=== PATIENT | female | born 1960 | race Caucasian/White ===

== ENCOUNTER 2017-04-10 13:16 | Inpatient (IN) | payer BC ==
[~2017-04-10] VITALS: Ht 172.7 cm; Wt 96.2 kg
[~2017-04-10 13:16] MED LIST: DYRENIUM50 MG PO; MONODOX100 MG PO; OXYCODONE HCL5 MG PO; PROTONIX40 MG PO; SYNTHROID112 MCG PO; VITAMIN B-122500 MCG PO
--- NOTE | 2017-04-10 13:30 | NUR ---
RECEIVED TO ROOM 2236 VIA A DIRECT ADMIT FROM DR. RAMIREZ'S OFFICE. A/O X3. REPORTS THROAT IS VERY SORE AND MAKES FOOD TASTE LIKE METAL. SKIN IS INTACT WITHOUT REDNESS. ANSWERS ALL QUESTIONS APPROPRIATELY. DENIES NEEDS.
[2017-04-10] MEDS ORDERED: AMOXICILLIN500 M1 PO (13:35)
[2017-04-10 13:56] VITALS: BP 105/71; BMI 32.3
--- NOTE | 2017-04-10 14:30 | NUR ---
IV SITED TO RIGHT FOREARM AFTER ONE ATTEMPT WITH 20G.
--- NOTE | 2017-04-10 18:15 | NUR ---
ABLE TO EAT SOME SUPPER AT THIS TIME. IN ROOM. DENIES NEEDS. NO CHANGES NOTED.
[2017-04-10 20:00] VITALS: BP 112/65
[2017-04-11] VITALS: BP 130/75
--- NOTE | 2017-04-11 03:56 | NUR ---
PT IS AWAKE WATCHING TV. HER IV WAS BEEPING AND IT WAS FIXED. SHE HAS EASY RESPIRATIONS AND NO COMPLAINTS VOICED. THE BED IS LOW, RAILS UP X'S 2 WITH THE CALL LIGHT AT HAND.
[2017-04-11 04:34] LABS: BASOPHILS 0.1 % (0-2); EOSINOPHILS 0 % (0-7); HEMATOCRIT 40.4 % (36.0-48.0); HEMOGLOBIN 12.9 g/dL (12-16); IMMATURE GRANULOCYTES 0.7 % (0-5); LYMPHOCYTES 15.6 % (15-50); MCH 27.6 pg (26.0-34.0); MCHC 31.9 g/dL (31.0-37.0); MCV 86.5 fL (80.0-100.0); MEAN PLATELET VOLUME 10.4 fL (7.4-10.4); MONOCYTES 2.1 % (2-11); NEUTROPHILS 81.5 % (40-80); PLATELET COUNT 258 10x3/uL (130-400); RBC 4.67 10x6/uL (4.00-5.40); RDW 13.5 % (11.5-14.5); WBC 8.2 10x3/uL (4.8-10.8)
[2017-04-11 04:58] LABS: ALBUMIN 3.1 g/dL (3.4-5.0); ALKALINE PHOSPHATASE 165 U/L (46-116); ALT (SGPT) 71 U/L (10-68); BILIRUBIN - TOTAL 0.33 mg/dL (0.2-1.3); CALC OSMOLALITY 279 mosm/kg (275-300); CALCIUM 8.6 mg/dL (8.5-10.1); CARBON DIOXIDE 29.3 mmol/L (21.0-32.0); CHLORIDE - SERUM 103 mmol/L (98-107); CREATININE - SERUM 0.8 mg/dL (0.6-1.3); POTASSIUM - SERUM 3.5 mmol/L (3.5-5.1); PROTEIN - SERUM 7.3 g/dL (6.4-8.2); SODIUM 139 mmol/L (136-145); UREA NITROGEN 9 mg/dL (7-18); eGFR NON AFRICAN AMERICAN 79 mL/min (90-120)
[2017-04-11 04:59] LABS: GLUCOSE 161 mg/dL (74-106)
[2017-04-11 05:09] VITALS: BP 161/73
--- NOTE | 2017-04-11 07:15 | NUR ---
SLEEPING AT THIS TIME WITH RESPIRATIONS EVEN AND NON LABORED. CALL LIGHT IN REACH, WILL CONTINUE WITH PLAN OF CARE.
[2017-04-11 09:14] VITALS: BP 119/66
--- NOTE | 2017-04-11 09:16 | NUR ---
SCHEDULED MEDICATIONS ADMINISTERED AT THIS TIME. ASSESSMENT PERFORMED PER FLOWSHEET. PT DENIES PAIN AT THIS TIME. STATES, "I FEEL MUCH BETTER TODAY THAN I DID YESTERDAY." IV PATENT TO RIGHT FOREARM, CALL LIGHT IN REACH. WILL CONTINUE WITH PLAN OF CARE.
[2017-04-11 10:12] VITALS: Ht 172.7 cm; Wt 96.2 kg
--- NOTE | 2017-04-11 11:15 | NUR ---
UP IN CHAIR AT THIS TIME INDEPENDENTLY. IV TO RIGHT FOREARM PATENT. SITE RE-INFORCED WITH TAPE FOR IV SECUREMENT. NO S/S OF INFILTRATION PRESENT. CALL LIGHT IN REACH, WILL CONTINUE WITH PLAN OF CARE.
[2017-04-11 12:20] VITALS: BP 116/72
[2017-04-11 15:58] VITALS: BP 114/69
--- NOTE | 2017-04-11 19:10 | NUR ---
SITTING UP IN BED TALKING ON PHONE, ASSESSMENT COMPLETED, NO DISTRESS NOTED, DENIES PAIN OR NEEDS AT THIS TIME, SR'S UP, CL IN REACH, WILL MONITOR
--- NOTE | 2017-04-11 20:38 | NUR ---
JHON CAMPA PER MAR, DANIEL WELL, DENIES NEEDS, FALL PRECAUTIONS IN PLACE, CL IN REACH
--- NOTE | 2017-04-11 22:59 | NUR ---
RESTING WITH EYES CLOSED, RESP WITH EASE, NO DISTRESS NOTED, SAFETY MEASURES IN PLACE, CL IN REACH
[2017-04-11 23:14] VITALS: BP 103/58
[2017-04-12 04:00] VITALS: BP 115/60
[2017-04-12 04:54] LABS: BASOPHILS 0.1 % (0-2); EOSINOPHILS 0.1 % (0-7); HEMATOCRIT 36.7 % (36.0-48.0); HEMOGLOBIN 11.7 g/dL (12-16); IMMATURE GRANULOCYTES 0.7 % (0-5); LYMPHOCYTES 21.4 % (15-50); MCH 27.7 pg (26.0-34.0); MCHC 31.9 g/dL (31.0-37.0); MCV 86.8 fL (80.0-100.0); MEAN PLATELET VOLUME 10.2 fL (7.4-10.4); MONOCYTES 6.3 % (2-11); NEUTROPHILS 71.4 % (40-80); PLATELET COUNT 279 10x3/uL (130-400); RBC 4.23 10x6/uL (4.00-5.40); RDW 13.6 % (11.5-14.5)
[2017-04-12 04:58] LABS: WBC 14.5 10x3/uL (4.8-10.8)
--- NOTE | 2017-04-12 07:37 | NUR ---
SCHEDULED MEDICATIONS ADMINISTERED AT THIS TIME. AMBULATING IN ROOM INDEPENDENTLY AT THIS TIME. HOPEFUL FOR A D/C HOME TODAY. CALL LIGHT IN REACH, WILL CONTINUE WITH PLAN OF CARE.
[2017-04-12 09:35] VITALS: BP 111/58
--- NOTE | 2017-04-12 10:35 | NUR ---
SCHEDULED PROBIOTIC ADMINISTERED AT THIS TIME. UP IN CHAIR INDEPENDENTLY. DENIES FURTHER NEEDS AT THIS TIME. WILL CONTINUE WITH PLAN OF CARE.
--- NOTE | 2017-04-12 12:20 | NUR ---
DENIES NEEDS AT PRESENT TIME. CALL LIGHT IN REACH, WILL CONTINUE WITH PLAN OF CARE.
[2017-04-12 18:22] VITALS: BP 108/62
--- NOTE | 2017-04-12 19:20 | NUR ---
ASSESSMENT COMPLETED, NO ACUTE DISTRESS NOTED, DENIES NEEDS, GOING TO WALK IN HALLWAY WITH FRIEND
[2017-04-12 20:00] VITALS: BP 122/78
--- NOTE | 2017-04-12 21:18 | NUR ---
LYING IN BED TALKING ON PHONE, DENIES NEEDS, FALL PRECAUTIONS IN PLACE, CL IN REACH
--- NOTE | 2017-04-13 01:48 | NUR ---
IV AB'S HUNG PER ORDERS, DANIEL WELL, DENIES NEEDS, CL IN REACH
[2017-04-13 04:00] VITALS: BP 146/86
[2017-04-13 05:28] LABS: BASOPHILS 0.3 % (0-2); EOSINOPHILS 0.9 % (0-7); HEMATOCRIT 37.2 % (36.0-48.0); HEMOGLOBIN 11.6 g/dL (12-16); IMMATURE GRANULOCYTES 0.9 % (0-5); MCH 27.1 pg (26.0-34.0); MCHC 31.2 g/dL (31.0-37.0); MCV 86.9 fL (80.0-100.0); MEAN PLATELET VOLUME 10.3 fL (7.4-10.4); MONOCYTES 8.2 % (2-11); NEUTROPHILS 55.7 % (40-80); PLATELET COUNT 276 10x3/uL (130-400); RBC 4.28 10x6/uL (4.00-5.40); RDW 13.9 % (11.5-14.5); WBC 11.5 10x3/uL (4.8-10.8)
[2017-04-13] MEDS ORDERED: OMNICEF300 MG PO (07:37)
[2017-04-13] MEDS ORDERED: CLEOCIN HCL300 MG PO (07:38)
--- NOTE | 2017-04-13 08:05 | NUR ---
AWAKE AND ALERT. ORIENTED X3. NO C/O AT THIS TIME. LUNGS ARE CLEAR BILATERALLY, NO COUGH NOTED. SKIN IS INTACT WITHOUT REDNESS. IV TO RIGHT FOREARM IS PATNET WITHOUT REDNESS AT INSERTION SITE. DENIES NEEDS. SITTING UP IN CHAIR AT BEDSIDE. THROAT IS NOT RED OR HAVE ANY PUSS SHOWING AT THIS TIME.
[2017-04-13 08:25] VITALS: BP 138/85
--- NOTE | 2017-04-13 09:38 | NUR ---
Patient Name: SVETLANA ESCOBEDO Admission Status: Urgent Accout number: [id number] Admission Date: 04-10-2017 : 1960 Admission Diagnosis: Attending: MICAELA Current LOS: 3 Anticipated DC Date: 04-13-2017 Planned Disposition: Home Primary Insurance: [employer] O Discharge Planning Comments: CM MET WITH PATIENT REGARDING D/C NEEDS AND PLANS. PATIENT IS DRIVING HERSELF HOME AND HAS ONE STEPS W/RAILS TO ENTER HOME AND NO STAIRS INSIDE. PATIENT LIVES WITH HER SPOUSE (ERLIN). PATIENT IS INDEPENDENT WITH HER CARE AND HAS NO DME AT HOME. PATIENTS PCP IS DR. CALZADA AND USES [facility] ON [address] FOR HER PHARMACY. PATIENT REFUSED HOME HEALTH AND HAD NO OTHER NEEDS FOR DISCHARGE. CM WILL CONTINUE TO FOLLOW PATIENT WITH D/C NEEDS AND PLANS. PCP DR. CALZADA [facility] [address] [phone] ERLIN (SPOUSE) [phone] [employer] Specialist: Nata Fleming Is the patient Alert and Oriented? Yes 0 * How many steps to enter\exit or inside your home? 1 W/RAIL 0 * PCP DR. CALZADA 0 * [facility] [address] 0 * Preadmission Environment Home with Family 0 * ADLs Independent 0 * Equipment None 0 * List name and contact numbers for known caregivers / representatives who currently or will assist patient after discharge: ERLIN (SPOUSE) [phone] 0 * Community resources currently utilized None 0 * Additional services required to return to the preadmission environment? Yes 0 * Can the patient safely return to the preadmission environment? Yes 0 * Has this patient been hospitalized within the prior 30 days at any hospital? No 0 Grand Total: 0
--- NOTE | 2017-04-13 09:42 | NUR ---
CM REASSESSMENT NOTE: PATIENT IS DISCHARGING HOME TODAY-DRIVING HERSELF. DENIED NEEDS FOR HOME HEALTH OR ANY OTHER NEEDS
--- NOTE | 2017-04-13 09:58 | NUR ---
DISCHARGED TO HOME AMBULATORY PER SELF. DISCHARGE INSTRUCTIONS GIVEN BOTH VERBALL AND WRITTEN. ALL QUESTIONS ANSWERED. PATIENT VERBALLIZED UNDERSTANDING OF SAME. NEEDED PRESCRIPTIONS ESCRIBED TO PHARMACY OF CHOICE. IV TO RIGHT FOREARM D/C WITH CATHETER INTACT.
--- NOTE | 2017-04-13 10:15 | NUR ---
OFF UNIT FOR HOME.
== END 2017-04-13 10:15 | disposition home or self-care (01) | DRG 153 ==
LOC: D.MS 13:16
PROVIDERS: Family Medicine; ADMIT Family Medicine
DX: J02.0 Streptococcal pharyngitis (principal)

== ENCOUNTER → 2017-08-26 13:12 | Outpatient (CLI) | payer BC ==
[2017-04-11 10:12] VITALS: BMI 32.2
[~2017-08-26 13:12] MED LIST changes: +AMOXICILLIN500 M1 PO; +CLEOCIN HCL300 MG PO; +OMNICEF300 MG PO
== END | disposition home or self-care (01) ==
LOC: D.MAMMO 11:00
DX: Z12.31 Encounter for screening mammogram for malignant neoplasm of breast (principal)

== ENCOUNTER → 2017-10-22 07:23 | Outpatient (CLI) | payer BC ==
[2017-04-11 10:12] VITALS: BMI 32.2
== END | disposition home or self-care (01) ==
LOC: D.CT 07:23
DX: R10.9 Unspecified abdominal pain (principal)

== ENCOUNTER → 2018-09-28 16:44 | Outpatient (CLI) | payer BC ==
[2017-04-11 10:12] VITALS: BMI 32.2
== END | disposition home or self-care (01) ==
LOC: D.MAMMO 08-31 09:15
DX: Z12.31 Encounter for screening mammogram for malignant neoplasm of breast (principal)

== ENCOUNTER → 2019-01-27 15:21 | Outpatient (CLI) | payer BC ==
[2017-04-11 10:12] VITALS: BMI 32.2
== END | disposition home or self-care (01) ==
LOC: D.RAD 15:21
PROVIDERS: ATTEND Family Medicine
DX: T18.9XXA Foreign body of alimentary tract, part unspecified, initial encounter (principal)

== ENCOUNTER → 2019-01-27 16:15 | Outpatient (CLI) | payer OTHER | END | disposition home or self-care (01) | LOC: D.RAD 16:15 | DX: M54.5 Low back pain (principal); T14.90XA Injury, unspecified, initial encounter ==

== ENCOUNTER → 2019-08-01 12:24 | Outpatient (CLI) | payer OTHER ==
[2017-04-11 10:12] VITALS: BMI 32.2
== END | disposition home or self-care (01) ==
LOC: D.MRI 12:24
PROVIDERS: ATTEND Family Medicine
DX: M54.2 Cervicalgia (principal)

== ENCOUNTER 2020-12-10 08:00 | Outpatient (CLI) | payer BC ==
[2017-04-11 10:12] VITALS: BMI 32.2
== END 2020-12-10 08:01 | disposition home or self-care (01) ==
LOC: D.MAMMO 08:00
PROVIDERS: ATTEND Family Medicine
DX: Z12.31 Encounter for screening mammogram for malignant neoplasm of breast (principal)